=== PATIENT | female | born 1995 ===

== ENCOUNTER 2019-02-18 13:35 | Emergency (ER) | payer OTHER ==
[2019-02-18 15:28] VITALS: BP 128/73
--- NOTE | 2019-02-18 15:35 | UC ---
Dizzy HPI HPI Summary: 23 yo female with a the onset of dizziness (vertigo) on 02/14. She woke with it and it disappeared by the end of the day. She felt fine until this AM when she awoke with the dizziness again. Nausea but no vomiting No MURPHY no ringing or roaring in ears mild popping of ears mild nasal congestion symptoms worsen when changing head and body position symptoms improve when supine had had trouble with acid reflux past 2 weeks no diarrhea no black or tarry stools - History Of Current Complaint Chief Complaint: UCGeneralIllness Stated Complaint: DIZZY, UPSET STOMACHE Time Seen by Provider: 02/18/19 14:46 Hx Obtained From: Patient Hx Last Menstrual Period: 02/02/19 Onset/Duration: Gradual Onset, Lasting Hours Timing: Constant Severity Initially: Mild Severity Currently: Mild Pain Intensity: 4 Pain Scale Used: 0-10 Numeric Character: Room Spinning Aggravating Factor(s): Nothing Alleviating Factor(s): Lying Down Associated Signs And Symptoms: Positive: Nausea, Unsteady Gait. Negative: Vomiting, Diaphoresis, Tinnitus, Chest Pain, SOB, Palpitations, Visual Changes, Decreased Oral Intake, Change In Medication, Change In Diet, OTC Medications - Allergies/Home Medications Allergies/Adverse Reactions: Allergies Allergy/AdvReac Type Severity Reaction Status Date / Time No Known Allergies Allergy Verified 02/18/19 14:04 Home Medications: Home Medications BuPROPion XL* [Bupropion XL*] 300 mg PO DAILY 02/18/19 [History Confirmed ] Desvenlafaxine Succinate [Pristiq] 25 mg PO QAM 02/18/19 [History Confirmed 12/28] Desvenlafaxine Succinate [Pristiq] 50 mg PO BEDTIME 02/18/19 [History Confirmed 02/18/19] Famotidine [Pepcid AC] 10 mg PO DAILY WITH MEAL 02/18/19 [History Confirmed 12/28] Omeprazole 20 mg PO DAILY WITH MEAL 02/18/19 [History Confirmed 02/18/19] PMH/Surg Hx/FS Hx/Imm Hx Previously Healthy: Yes GI/ History: Gastroesophageal Reflux - Surgical History Surgical History: None - Family History Known Family History: Positive: Hypertension, Diabetes - Social History Alcohol Use: Rare Substance Use Type: None Smoking Status (MU): Never Smoked Tobacco Review of Systems All Other Systems Reviewed And Are Negative: Yes Constitutional: Positive: Fatigue Skin: Positive: Negative Eyes: Positive: Negative ENT: Positive: Negative Respiratory: Positive: Negative Cardiovascular: Positive: Negative Gastrointestinal: Positive: Negative Genitourinary: Positive: Negative Motor: Positive: Negative Neurovascular: Positive: Negative Musculoskeletal: Positive: Negative Neurological: Positive: Negative Psychological: Positive: Negative Physical Exam Triage Information Reviewed: Yes Appearance: Well-Appearing, No Pain Distress, Well-Nourished Vital Signs: Initial Vital Signs Temp 98.8 F 02/18/19 14:00 Pulse 88 02/18/19 14:00 Resp 18 02/18/19 14:00 BP 121/70 02/18/19 14:00 Pulse Ox 99 02/18/19 14:00 Vital Signs Reviewed: Yes Eyes: Positive: Conjunctiva Clear, Other: - eomi/perrl/no nystagmus ENT: Positive: Hearing grossly normal, Pharynx normal, TMs normal, Uvula midline. Negative: Nasal congestion, Nasal drainage, Trismus, Muffled voice, Hoarse voice, Sinus tenderness Neck: Positive: Supple, Nontender, No Lymphadenopathy Respiratory: Positive: Lungs clear, Normal breath sounds, No respiratory distress Cardiovascular: Positive: RRR, No Murmur Abdomen Description: Negative: Nontender - slight epigastric tenderness Bowel Sounds: Positive: Present Musculoskeletal: Positive: ROM Intact, No Edema Neurological: Positive: Alert, Other: - non focal neurologic exam, _ Rhomberg, cranial nerves intact Psychological Exam: Normal Skin Exam: Normal Diagnostics - Laboratory Lab Results: ua neg, uHCG (-) Dizzy Course/Dx - Course Course Of Treatment: neg orthostatic changes - Differential Dx/Diagnosis Provider Diagnosis: Vertigo, Fatigue Discharge ED - Sign-Out/Discharge Documenting (check all that apply): Patient Departure All imaging exams completed and their final reports reviewed: No Studies - Discharge Plan Condition: Stable Disposition: HOME Prescriptions: Meclizine TAB* [Antivert TAB*] 25 mg PO TID PRN #20 tab PRN Reason: Dizziness Patient Education Materials: Vertigo (ED), Fatigue (ED) Referrals: [facility] - Ritesh PRATHER [Z.[email or web address], APPLICATION, OTHER] - 2 Days Additional Instructions: blood work pending recheck in 2 days if not better change position slowly don't drive until better - Billing Disposition and Condition Condition: STABLE Disposition: Home
[2019-02-19 10:59] LABS: ABS Basophils 0.1 10^3/ul (0-0.2); ABS Eosinophils 0.4 10^3/ul (0-0.6); ABS Lymphocytes 1.9 10^3/ul (1.0-4.8); ABS Monocytes 0.4 10^3/ul (0-0.8); Eosinophil % 5.2 %; Hematocrit 37 % (35-47); Hemoglobin 12.2 g/dL (12.0-16.0); Lymphocyte % 24.6 %; Mean Corpuscular HGB Conc 33 g/dL (31-36); Mean Corpuscular Hemoglobin 27 pg (27-31); Mean Corpuscular Volume 80 fL (80-97); Mean Platelet Volume 9.1 fL (7.4-10.4); Platelet Count 346 10^3/uL (150-450); Red Blood Count 4.54 10^6 /uL (3.70-4.87); Red Cell Distribution Width 15 % (10-15); White Blood Count 7.8 10^3/uL (3.5-10.8)
[2019-02-19 11:22] LABS: Calcium 9.8 mg/dL (8.6-10.3); Potassium 4.2 mmol/L (3.5-5.0)
[2019-02-19 11:28] LABS: BUN/Creatinine Ratio 13.6 (8-20); EGFR African American 152.8 (>60); EGFR Non-African American 126.3 (>60)
== END 2019-02-18 16:00 | disposition home or self-care (01) ==
LOC: UCEAST 13:35
DX: R42 Dizziness and giddiness (principal); R53.83 Other fatigue; K21.9 Gastro-esophageal reflux disease without esophagitis; Z79.899 Other long term (current) drug therapy
CPT/HCPCS: 36415; 80048; 81003; 84702; 85025; 99202; G0463